=== PATIENT | male | born 1985 | race Caucasian/White ===

== ENCOUNTER 2019-12-28 10:27 | Emergency (ER) | payer OTHER ==
[~2019-12-28] VITALS: Ht 180.3 cm; Wt 119.1 kg
[2019-12-28] MEDS ORDERED: KEFLEX500 M1 PO (12:05)
[2019-12-28] MEDS ORDERED: IBUPROFEN600 MG PO (12:05)
[2019-12-28 12:15] VITALS: BP 149/74
== END 2019-12-28 12:15 | disposition home or self-care (01) | DRG 605 ==
LOC: ED 10:27
PROC: 0HQGXZZ Repair Left Hand Skin, External Approach (ICD-10-PCS; principal; 2019-12-28)
DX: S61.215A Laceration without foreign body of left ring finger without damage to nail, initial encounter (principal); W26.8XXA Contact with other sharp object(s), not elsewhere classified, initial encounter; Y93.89 Activity, other specified; Y92.009 Unspecified place in unspecified non-institutional (private) residence as the place of occurrence of the external cause

== ENCOUNTER 2020-01-01 17:58 | Emergency (ER) | payer OTHER ==
[~2020-01-01] VITALS: Ht 180.3 cm; Wt 120.0 kg
[~2020-01-01 17:58] MED LIST: IBUPROFEN600 MG PO; KEFLEX500 M1 PO
[2020-01-01 18:46] VITALS: BP 130/80
== END 2020-01-01 18:46 | disposition home or self-care (01) | DRG 921 ==
LOC: ED 17:58
DX: T81.33XA Disruption of traumatic injury wound repair, initial encounter (principal); Y83.8 Other surgical procedures as the cause of abnormal reaction of the patient, or of later complication, without mention of misadventure at the time of the procedure; Y92.89 Other specified places as the place of occurrence of the external cause; F17.210 Nicotine dependence, cigarettes, uncomplicated